=== PATIENT | female | born 1995 | race Caucasian/White ===

== ENCOUNTER 2017-06-13 15:09 | Emergency (ER) | payer BC, MEDICAID ==
[2017-06-13 15:23] VITALS: BP 122/96
[2017-06-13] MEDS ORDERED: Doxycycline 100 MG Cap PO ONE (15:42)
--- NOTE | 2017-06-13 15:47 | EDM.PDOC ---
ED HPI GENERAL MEDICAL PROBLEM - General Chief Complaint: Skin Complaint Stated Complaint: LIP/MOUTH SORES Time Seen by Provider: 06/13/17 15:35 Source of Information: Reports: Patient History Limitations: Reports: No Limitations - History of Present Illness INITIAL COMMENTS - FREE TEXT/NARRATIVE: Patient is a 22-year-old female presents to the ED complaining of sores to the lips for the past few weeks. Patient states she developed some cracks to the corners if the mouth. Has awoken with crusty yellow drainage to her lips as of recently. She does have a history of impetigo and states symptoms she is currently experiencing are similar. She denies history of cold sores and or sores to the mouth. She states the lips are sore. She denies any additional complaints. 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 ED EXAM, SKIN/RASH Exam: See Below Exam Limited By: No Limitations General Appearance: Alert, WD/WN, No Apparent Distress Eye Exam: Bilateral Eye: Normal Inspection Ears: Hearing Grossly Normal Nose: Normal Inspection Throat/Mouth: Normal Voice, No Airway Compromise. No: Normal Lips (Patient is small lesions to lips upper and lower consistent for impetigo. Dry yellow/ orange crust noted. No cracks the corners of the mouth. No sores to the oropharynx. ) Neck: Normal Inspection, Supple Respiratory/Chest: No Respiratory Distress, No Accessory Muscle Use Neurological: Alert, Oriented, CN II-XII Intact, Normal Cognition, No Motor/ Sensory Deficits Psychiatric: Normal Affect, Normal Mood Skin: Warm, Dry, Intact Course - Vital Signs Last Recorded V/S: Last Vital Signs Temp 99.0 F 06/13/17 15:23 Pulse 99 06/13/17 15:23 Resp 20 06/13/17 15:23 BP 122/96 H 06/13/17 15:23 Pulse Ox 98 06/13/17 15:23 - Orders/Labs/Meds Meds: Medications Discontinued Medications Generic Name Dose Route Start Last Admin Trade Name Prince PRN Reason Stop Dose Admin Doxycycline Hyclate 100 mg 06/13/17 15:42 06/13/17 15:54 Vibramycin PO 06/13/17 15:43 100 mg ONETIME ONE Administration - Re-Assessments/Exams Free Text/Narrative Re-Assessment/Exam: Patient has impetigo of the lips. Ordered doxycycline 100mgPO.Will discharge patient home with instructions as documented. Departure - Departure Time of Disposition: 15:43 Disposition: Home, Self-Care 01 Clinical Impression: Impetigo - Discharge Information Prescriptions: Doxycycline [Vibramycin] 100 mg PO BID #14 tab Instructions: Impetigo, Adult Referrals: PCP,None [Primary Care Provider] - Forms: ED Department Discharge Additional Instructions: Take the doxycycline as prescribed. Impetigo should resolve over the next few days. Followup with pcp this coming week for reevaluation. Return to the E.D. if you develop any new or worsening symptoms.
== END 2017-06-13 15:55 | disposition home or self-care (01) ==
LOC: JD.ED 15:09
DX: L01.00 Impetigo, unspecified (principal)
CPT/HCPCS: 99283; A9270

== ENCOUNTER 2019-10-21 15:16 | Emergency (ER) | payer BC ==
[2019-10-21 15:27] VITALS: BP 125/83; PULSE 87
[2019-10-21] MEDS ORDERED: HYDROmorphone 0.5 MG/0.5 ML Syringe IM ONE (15:33)
[2019-10-21] MEDS ORDERED: Lidocaine 1% 10 ML MDV INJECT ONE (15:33)
--- NOTE | 2019-10-21 15:40 | EDM.PDOC ---
ED HPI GENERAL MEDICAL PROBLEM - General Chief Complaint: Laceration Stated Complaint: R INDEX FINGER LAC Time Seen by Provider: 10/21/19 15:22 Source of Information: Reports: Patient, RN Notes Reviewed History Limitations: Reports: No Limitations - History of Present Illness INITIAL COMMENTS - FREE TEXT/NARRATIVE: Patient is a 24-year-old female who presents to the ED for the evaluation of a right index finger injury. Patient states roughly half hour before coming to the ER, she was at home in her garage, and was playing with her children and not watching what she was doing and she ended up getting her right index finger smashed in a car door/window. She notes that there was a laceration over this, as it is bleeding quite profusely. It has since stopped since she has been in the ER. This is on the proximal posterior aspect of the right index finger that is roughly 1 cm in length. Patient's not sure of her last Tdap, but she did recently have a baby last year, so she assumes she is up-to-date. She states she has not been able to move the finger much due to the pain. She did not take any medications for the pain. She denies any fever/chills, cough/shortness of breath, or any other sick-like symptoms at this time. She is not complaining of any numbness or tingling into the finger. 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 ED EXAM, SKIN/RASH Exam: See Below Exam Limited By: No Limitations General Appearance: Alert, WD/WN, No Apparent Distress Respiratory/Chest: No Respiratory Distress, Lungs Clear, Normal Breath Sounds, No Accessory Muscle Use, Chest Non-Tender Cardiovascular: Normal Peripheral Pulses, Regular Rate, Rhythm, No Murmur Peripheral Pulses: 2+: Radial (L), Radial (R) Extremities: Normal Capillary Refill, Limited Range of Motion (of right index finger d/t pain) Neurological: Alert, Oriented, Normal Cognition, No Motor/Sensory Deficits Psychiatric: Normal Affect, Normal Mood Skin: Warm, Dry, Normal Color, No Rash, Wound/Incision (roughly 1cm linear laceration to posterior surface of right index finger, no active bleeding appreciated at this time) ED SKIN PROCEDURES - Laceration/Wound Repair Right Posterior Proximal Digit - 2nd (Index) Appearance: Superficial, Linear, Clean Distal NVT: Neuro & Vascular Intact, No Tendon Injury Anesthetic Type: Local Local Anesthesia - Lidocaine (Xylocaine): 1% Plain Local Anesthetic Volume: 2cc Skin Prep: Chlorhexidine (Hibiciens), Saline Exploration/Debridement/Repair: Wound Explored, In a Bloodless Field, Explored to Base, No Foreign Material Found Closed with: Sutures Lac/Wound length In cm: 1 Suture Size: 4-0 # of Sutures: 4 Suture Type: Prolene, Interrupted, Simple Sterile Dressing Applied: Nurse Tetanus Status Addressed: Yes Complications: No Course - Vital Signs Last Recorded V/S: Last Vital Signs Temp 98.1 F 10/21/19 15:25 Pulse 87 10/21/19 15:25 Resp 16 10/21/19 15:25 BP 125/83 10/21/19 15:25 Pulse Ox 98 10/21/19 15:25 - Orders/Labs/Meds Orders: Active Orders 24 hr Category Date Time Status Fingers Second Digit Rt F6 [CR] Stat Exams 10/21/19 15:33 Ordered Meds: Medications Discontinued Medications Generic Name Dose Route Start Last Admin Trade Name Freq PRN Reason Stop Dose Admin Hydromorphone HCl 0.5 mg 10/21/19 15:33 08/29/20 15:40 Dilaudid IM 10/21/19 15:34 0.5 mg ONETIME ONE Administration Lidocaine HCl 10 ml 10/21/19 15:33 10/21/19 15:40 Xylocaine 1% INJECT 10/21/19 15:34 10 ml ONETIME ONE Administration - Re-Assessments/Exams Free Text/Narrative Re-Assessment/Exam: 10/21/19 16:24 Finger x-ray was performed, demonstrates no sign of fracture or other bony abnormality at this time. Patient's laceration will be repaired with sutures, patient will discharge home with general recommendations. Departure - Departure Time of Disposition: 15:40 Disposition: Home, Self-Care 01 Condition: Good Clinical Impression: Laceration of right index finger Qualifiers: Encounter type: initial encounter Damage to nail status: without damage Foreign body presence: without foreign body Qualified Code(s): S61.210A - Laceration without foreign body of right index finger without damage to nail, initial encounter - Discharge Information *PRESCRIPTION DRUG MONITORING PROGRAM REVIEWED*: No *COPY OF PRESCRIPTION DRUG MONITORING REPORT IN PATIENT AAN: No Instructions: Sutured Wound Care, [id number] Referrals: Naz Steinberg PA-C [Primary Care Provider] - Forms: ED Department Discharge Additional Instructions: You have been evaluated in the ED for your laceration. Sutures will need to stay in for 10-14 days. You may return to the ED or any clinic for removal. Please keep this area clean and dry, you may cleanse with regular soap and water. No vigorous scrubbing. Please try to avoid submerging the affected area in water for prolonged periods of time until the sutures are removed. Watch out for signs of infection like increased redness, swelling, pain at the laceration site, or if you should develop any fevers or chills. Please return to ED if your symptoms change or worsen. Sepsis Event Note (ED) - Evaluation Sepsis Screening Result: No Definite Risk - Focused Exam Vital Signs: Vital Signs Temp Pulse Resp BP Pulse Ox 10/21/19 15:25 98.1 F 87 16 125/83 98 - My Orders Last 24 Hours: My Active Orders 10/21/19 15:33 Fingers Second Digit Rt F6 [CR] Stat - Assessment/Plan Last 24 Hours: My Active Orders 10/21/19 15:33 Fingers Second Digit Rt F6 [CR] Stat
--- NOTE | 2019-10-22 11:25 | CR ---
Right second finger: 4 views centered to the right second finger were obtained. Comparison: No prior finger or hand exam is available. Joint spaces are preserved. No acute fracture, dislocation or other bony abnormality is seen. Impression: 1. No abnormality is identified on right second finger exam. Diagnostic code #1 Study was dictated in MDT
== END 2019-10-21 16:48 | disposition home or self-care (01) ==
LOC: JD.ED 15:16
DX: S61.210A Laceration without foreign body of right index finger without damage to nail, initial encounter (principal); F32.9 Major depressive disorder, single episode, unspecified; F41.9 Anxiety disorder, unspecified; Z79.899 Other long term (current) drug therapy; W23.0XXA Caught, crushed, jammed, or pinched between moving objects, initial encounter
CPT/HCPCS: 12001; 73140; 96372; 99283; J1170; J2001; 99282

== ENCOUNTER 2019-10-31 15:46 | Emergency (ER) | payer BC ==
[2019-10-31 15:59] VITALS: BP 116/78; PULSE 91
== END 2019-10-31 15:58 ==
LOC: JD.ED 15:46
DX: S61.210D Laceration without foreign body of right index finger without damage to nail, subsequent encounter (principal)
CPT/HCPCS: 99281

== ENCOUNTER 2020-07-04 20:12 | Emergency (ER) | payer SELFPAY ==
[2020-07-04 20:38] VITALS: BP 121/83; PULSE 109
--- NOTE | 2020-07-04 22:56 | EDM.PDOC ---
ED HPI GENERAL MEDICAL PROBLEM - General Chief Complaint: ENT Problem Stated Complaint: SWOLLEN TONSILS Time Seen by Provider: 07/04/20 21:52 Source of Information: Reports: Patient History Limitations: Reports: No Limitations - History of Present Illness INITIAL COMMENTS - FREE TEXT/NARRATIVE: 25-year-old female presents to the emergency department with a 2-day history of a sore throat. She denies any other symptoms other than having a sore throat. No fever, no chills, no nausea, no vomiting, no diarrhea, no no abdominal pain, no cough, no shortness of breath, and no headache. She states this started 2 days ago and has progressively gotten worse. She states that it difficult to eat or swallow. She states she is otherwise healthy. Throat Pain Score (Numeric/FACES): 8 - Related Data Allergies Allergy/AdvReac Type Severity Reaction Status Date / Time No Known Allergies Allergy Verified 07/04/20 20:32 Home Meds: Home Meds Escitalopram [Lexapro] 20 mg PO DAILY 06/13/17 [History] Ibuprofen [Motrin] 600 mg PO Q6H PRN tablet 08/30/18 [Rx] buPROPion [Wellbutrin] 100 mg PO DAILY 10/21/19 [History] Acyclovir 400 mg PO ASDIRECTED 07/04/20 [History] Past Medical History - Past Health History Medical/Surgical History: Denies Medical/Surgical History HEENT History: Reports: None Cardiovascular History: Reports: None Respiratory History: Reports: None Gastrointestinal History: Reports: GERD Genitourinary History: Reports: None, STD Other Genitourinary History: Herpes 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: Musculoskeletal History: Reports: None Neurological History: Reports: None Psychiatric History: Reports: ADHD, Anxiety, Depression Endocrine/Metabolic History: Reports: None Hematologic History: Reports: None Immunologic History: Reports: None Oncologic (Cancer) History: Reports: None Dermatologic History: Reports: None - Infectious Disease History Infectious Disease History: Reports: Herpes, MRSA - Past Surgical History Female Surgical History: Reports: Other (See Below) Other Female Surgeries/Procedures: On merina Social & Family History - Family History Family Medical History: No Pertinent Family History - Tobacco Use Tobacco Use Status *Q: Never Tobacco User - Caffeine Use Caffeine Use: Reports: Energy Drinks - Recreational Drug Use Recreational Drug Use: No ED ROS ENT - Review of Systems Review Of Systems: Comprehensive ROS is negative, except as noted in HPI. ED EXAM, ENT - Physical Exam Exam: See Below Exam Limited By: No Limitations General Appearance: Alert, WD/WN, No Apparent Distress Ears: Normal External Exam, Hearing Grossly Normal Nose: Normal Inspection Mouth/Throat: Normal Inspection, Pharyngeal Erythema, Tonsillar Erythema, Ton sillar Exudates, Tonsillar Swelling Head: Atraumatic Neck: Normal Inspection, Supple, Non-Tender, Full Range of Motion. No: Lymphadenopathy (L), Lymphadenopathy (R) Respiratory/Chest: No Respiratory Distress, Lungs Clear, Normal Breath Sounds, No Accessory Muscle Use, Chest Non-Tender Cardiovascular: Normal Peripheral Pulses, Regular Rate, Rhythm GI/Abdominal: No Distention (Female) Exam: Deferred Rectal (Female) Exam: Deferred Back: Normal Inspection Extremities: Normal Inspection Neurological: Alert, Oriented, Normal Cognition Psychiatric: Normal Affect, Normal Mood Skin: Warm, Dry, Intact, Normal Color, No Rash Lymphatic: No Adenopathy Course - Vital Signs Text/Narrative:: Patient presents with 2-day history of progressively worsening sore throat. No other symptoms are noted. On assessment tonsils are slightly swollen, they are erythematous, and there is purulent exudate noted on the left tonsil. I do not appreciate any lymph node swelling however patient does have tenderness on pal pation to the tonsillar area. I have ordered for the patient to have strep screen. Last Recorded V/S: Last Vital Signs Temp 97.7 F 07/04/20 20:36 Pulse 109 H 07/04/20 20:36 Resp 18 07/04/20 20:36 BP 121/83 07/04/20 20:36 Pulse Ox 98 07/04/20 20:36 - Orders/Labs/Meds Labs: Laboratory Tests 07/04/20 Range/Units 21:58 Group A Strep (PCR) Not detected (NOT DETECT) - Re-Assessments/Exams Free Text/Narrative Re-Assessment/Exam: 07/04/20 23:08 Group A strep is not detected. Discussed these results with the patient. I have instructed her to use warm salt water gargles and take Tylenol or ibuprofen for the discomfort. If she develops fever, chills, nausea, vomiting she is to follow-up with her primary care provider to be reevaluated. Departure - Departure Time of Disposition: 23:09 Disposition: Home, Self-Care 01 Condition: Good Clinical Impression: Sore throat - Discharge Information Instructions: Sore Throat, [id number] Referrals: Naz Steinberg PA-C [Primary Care Provider] - Forms: ED Department Discharge Additional Instructions: You were seen in the emergency department today with complaints of a sore throat for the past 2 days. A swab was taken and sent for evaluation in the lab. This was negative for strep. Recommend that you go home and drink plenty of fluids, may gargle with warm salt water, and take ibuprofen or Tylenol for the discomfort. Should you develop fever, chills, nausea, vomiting, do not hesitate returning to the emergency department for evaluation. If this is not better in about a week, recommend follow-up with your primary care provider. Should your condition worsen or change, do not hesitate returning to the emergency department. Sepsis Event Note (ED) - Evaluation Sepsis Screening Result: No Definite Risk - Focused Exam Vital Signs: Vital Signs Temp Pulse Resp BP Pulse Ox 07/04/20 20:36 97.7 F 109 H 18 121/83 98
== END 2020-07-04 23:15 | disposition home or self-care (01) ==
LOC: JD.ED 20:12
DX: J02.9 Acute pharyngitis, unspecified (principal); Z79.899 Other long term (current) drug therapy
CPT/HCPCS: 87651-QW; 99282; 99283

== ENCOUNTER 2022-03-14 16:42 | Emergency (ER) | payer BC, MEDICAID ==
[2022-03-14 17:15] VITALS: BP 134/91; PULSE 89
[2022-03-14] MEDS ORDERED: Ketorolac 30 MG/ML SDV IM ONE (17:26)
[2022-03-14] MEDS ORDERED: Cefdinir 300 MG Cap PO ONE (19:00)
== END 2022-03-14 20:00 | disposition home or self-care (01) ==
LOC: JD.ED 16:42
DX: N63.13 Unspecified lump in the right breast, lower outer quadrant (principal); Z79.899 Other long term (current) drug therapy
CPT/HCPCS: 76642; 96372; 99283; A9270; J1885